=== PATIENT | male | born 1990 | race Caucasian/White ===

== ENCOUNTER 2018-09-08 02:28 | Emergency (ER) | payer SELFPAY ==
[2018-09-08] MEDS ORDERED: Lidocaine 1% w/Epinephrine 1:100K 20 ML VIAL ONE (02:52)
[2018-09-08 03:27] LABS: Bilirubin Negative (Negative); Blood, Urine Negative (Negative); Clarity CLEAR (Clear); Glucose, Urine (Dipstick) Negative (Negative); Leukocyte Negative (Negative); Nitrite Negative (Negative); Protein, Urine (Dipstick) Negative (Neg-Trace); Specific Gravity, Urine 1.006 (1.002-1.036); Urobilinogen 0.2 mg/dL (0.2-1.0)
[2018-09-08 03:36] LABS: Amphetamine Detected (NotDetected); Barbiturates Screen Not Detected (NotDetected); Benzodiazepine Screen Not Detected (NotDetected); Cocaine Metabolite Screen Not Detected (NotDetected); Medtox Control Line Valid? VALID (VALID); Medtox Reader # READER 1; Methadone Not Detected (NotDetected); Methamphetamine Not Detected (NotDetected); Opiate Screen Not Detected (NotDetected); Oxycodone Screen Not Detected (NotDetected); Phencyclidine (PCP) Not Detected (NotDetected); THC/Cannabinoid Screen Not Detected (NotDetected); Tricyclic Screen Not Detected (NotDetected)
[2018-09-08 03:38] LABS: #Eosinphils 0.1 thou/uL (0.0-0.7); #Lymphocytes 1.2 thou/uL (1.20-3.40); #Monocytes 0.3 thou/uL (0.11-0.59); #Neutrophils 3.7 thou/uL (1.40-6.50); %Basophils 0.5 % (0.0-1.0); %Eosinophils 1.3 % (0.0-10.0); %Lymphocytes 23.1 % (21.0-51.0); %Monocytes 6.3 % (0.0-10.0); %Neutrophils 68.8 % (42.0-75.0); Hemoglobin 13.4 g/dL (14.0-18.0); Mean Corpuscular HGB CONC 35.2 g/dL (32.0-36.0); Mean Platelet Volume 7.1 fL (7.4-10.4); Platelet Count 250 thou/uL (130-400); RBC Distribution Width 10.7 % (11.5-14.5); Red Blood Cell (RBC) Count 4.32 mill/uL (4.70-6.10); White Blood Cell (WBC) Count 5.3 thou/uL (4.8-10.8)
[2018-09-08 04:06] LABS: ALT (SGPT) 25 U/L (8-55); AST (SGOT) 25 U/L (5-34); Acetaminophen Less than 6.0 mcg/mL (10.0-30.0); Albumin 4.1 g/dL (3.5-5.0); Alcohol 327 mg/dL (Less than 10); Alkaline Phosphatase 57 U/L (40-150); Anion Gap 12 mmol/L (10-20); BUN (Urea Nitrogen) 8 mg/dL (8.9-20.6); Bilirubin, Total 0.4 mg/dL (0.2-1.2); Calc. Creatinine Clearance 0 mL/min (70-130); Calcium 8.2 mg/dL (7.8-10.44); Carbon Dioxide 23 mmol/L (22-29); Chloride 107 mmol/L (98-107); Estimated GFR-MDRD Greater than 90; Globulin 2.5 g/dL (2.4-3.5); Glucose 118 mg/dL (70-105); Potassium 3.2 mmol/L (3.5-5.1); Protein, Total 6.6 g/dL (6.0-8.3); Salicylate Less than 8.0 mg/dL (15.0-30.0); Sodium 139 mmol/L (136-145)
[2018-09-08] MEDS ORDERED: Ondansetron PF 4 MG/2 ML Vial ONE (05:03)
--- NOTE | 2018-09-08 09:31 | RAD ---
CHEST ONE VIEW: INDICATIONS: History of fall with chest pain. COMPARISON: None. FINDINGS: The left costophrenic angle is excluded. The lungs are clear. Heart size is normal. The visualized osseous structures are unremarkable. IMPRESSION: No acute abnormality. POS: [facility]
--- NOTE | 2018-09-08 10:13 | CT ---
PRELIMINARY REPORT/[facility]/EMERGENTY AFTER-HOURS PROCEDURE CT Maxillofacial Without Intravenous Contrast EXAM DATE/TIME: 09/08/2018 3:45 AM CLINICAL HISTORY: 28 years old, male; Injury or trauma; Fall; Initial encounter; Abrasion; Nose; Patient HX: Er 7; M28 presents to ed C/O fall off x6 ft ledge at . PT intoxicated and combative on-scene. TECHNIQUE: Axial computed tomography images of the face without intravenous contrast. Coronal and sagittal reformatted images were created and reviewed. COMPARISON: No relevant prior studies available. FINDINGS: Bones/joints: No acute fracture. Soft tissues: No significant facial soft tissue swelling. Orbits: No acute intraorbital abnormality. Globes are unremarkable. Sinuses: Normal. No air-fluid levels. IMPRESSION: No acute findings. Thank you for allowing us to participate in the care of your patient. Dictated and Authenticated by: Juan Jose Thomson MD 09/08/2018 4:23 AM Central Time ([place] & [place]) FINAL REPORT: FINDINGS/IMPRESSION: No acute fracture demonstrated. POS: [facility]
--- NOTE | 2018-09-08 10:15 | CT ---
PRELIMINARY REPORT/[facility]/EMERGENTY AFTER-HOURS PROCEDURE CT Cervical Spine Without Intravenous Contrast EXAM DATE/TIME: 09/08/2018 3:44 AM CLINICAL HISTORY: 28 years old, male; Injury or trauma; Fall; Initial encounter; Abrasion; Patient HX: Er 7; M28 presen ts to ed C/O fall off x6 ft ledge at ng. PT intoxicated and combative on-scene. TECHNIQUE: Axial computed tomography images of the cervical spine without intravenous contrast. COMPARISON: No relevant prior studies available. FINDINGS: Vertebrae: No acute fracture. Normal alignment. Discs/Spinal canal/Neural foramina: No spinal stenosis. No neural foraminal narrowing. Soft tissues: Unremarkable. Lungs: Lung apices are normal. IMPRESSION: No acute findings. Thank you for allowing us to participate in the care of your patient. Dictated and Authenticated by: Juan Jose Thomson MD 09/08/2018 4:19 AM Central Time ([place] & [place]) CT CERVICAL SPINE WITHOUT CONTRAST: INDICATIONS: History off all with neck pain. FINDINGS/IMPRESSION: I agree with the preliminary report provided. No acute intracranial abnormality is evident. POS: [facility]
--- NOTE | 2018-09-08 10:17 | CT ---
PRELIMINARY REPORT/[facility]/EMERGENTY AFTER-HOURS PROCEDURE CT Head Without Intravenous Contrast EXAM DATE/TIME: 09/08/2018 3:48 AM CLINICAL HISTORY: 28 years old, male; Injury or trauma; Fall; Initial encounter; Abrasion; Not specified; Patient HX: E r 7; M28 presents to ed C/O fall off x6 ft ledge at . PT intoxicated and combative on-scene. TECHNIQUE: Axial computed tomography images of the head/brain without intravenous contrast. COMPARISON: No relevant prior studies available. FINDINGS: Brain: Normal. No hemorrhage. No significant white matter disease. No edema. Ventricles: Normal. No ventriculomegaly. Bones/joints: Normal. No acute fracture. Sinuses: Normal as visualized. No acute sinusitis. Mastoid air cells: Normal as visualized. No mastoid effusion. Soft tissues: Normal. IMPRESSION: No acute intracranial abnormality. Thank you for allowing us to participate in the care of your patient. Dictated and Authenticated by: Juan Jose Thomson MD 09/08/2018 4:20 AM Central Time ([place] & [place]) FINAL REPORT: I agree with the preliminary report provided. No acute intracranial abnormalities demonstrated. POS: [facility]
== END 2018-09-08 08:38 | disposition home or self-care (01) ==
LOC: ERS 02:28
DX: S02.5XXA Fracture of tooth (traumatic), initial encounter for closed fracture (principal); S01.511A Laceration without foreign body of lip, initial encounter; F10.129 Alcohol abuse with intoxication, unspecified; Y90.8 Blood alcohol level of 240 mg/100 ml or more; W17.89XA Other fall from one level to another, initial encounter
CPT/HCPCS: 12011; 36415; 51701; 70450; 70486; 71045; 72125; 80053; 80306; 80307; 81003; 85025; 96374; J2001; J2405